=== PATIENT | female | born 1995 | race Caucasian/White ===

== ENCOUNTER 2018-01-25 10:44 | Outpatient (CLI) | payer BC ==
[~2018-01-25] VITALS: Ht 167.6 cm; Wt 74.5 kg
[~2018-01-25 10:44] MED LIST: MOTRIN 600600 MG/TAB PO; PERCOCET 325 MG1 TA2 PO; PRENATAL VITAMI1 TAB PO; SYNTHROID0.05 MG/TA PO
[2018-01-25 10:47] VITALS: BP 114/60; PULSE 73; TEMP 98.4
[2018-01-25 11:06] LABS: BASO % 0.4 % (0.0-2.0); EOS # 0.1 (0.0-0.7); EOS % 0.9 % (0-4.0); GRAN # 7.8 (1.4-6.5); HEMATOCRIT 33.9 % (37.0-47.0); HEMOGLOBIN 11.5 g/dl (12.5-16.0); LYMPH # 1.3 (1.2-3.4); LYMPH % 12.9 % (20.0-51.0); MEAN CELL VOLUME 86 fl (80.0-100.0); MEAN CORPUSCULAR HEMOGLOBIN 29 pg (27.0-31.0); MEAN CORPUSCULAR HGB CONC 34 g/dl (33.0-37.0); MEAN PLATELET VOLUME 9.7 fl (7.4-10.4); MONO # 0.4 (0.1-0.6); MONO % 4.3 % (1.7-9.3); PLATELET COUNT 209 K/mm3 (130-400); RED BLOOD COUNT 3.96 M/mm3 (4.10-5.30); REDCELL DISTRIBUTION WIDTH-CV 12.5 % (11.5-14.5)
[2018-01-25 11:15] LABS: ALBUMIN 3.4 gm/dL (3.5-5.0); BILIRUBIN,TOTAL 0.3 mg/dL (0.0-1.0); CALCIUM 9.6 mg/dL (8.4-10.2); CREATININE, serum 0.58 mg/dL (0.52-1.25); POTASSIUM 3.7 mmol/L (3.4-5.0); TOTAL PROTEIN 6.8 gm/dL (6.4-8.2)
== END 2018-01-25 12:15 | disposition home or self-care (01) ==
LOC: LDRO 10:44 → LDR 10:45 → LDRO 12:15
PROVIDERS: Obstetrics & Gynecology
DX: O46.93 Antepartum hemorrhage, unspecified, third trimester (principal); Z3A.32 32 weeks gestation of pregnancy
CPT/HCPCS: OP; J0702

== ENCOUNTER 2018-02-08 20:31 | Inpatient (IN) | payer BC ==
[~2018-02-08] VITALS: Ht 167.6 cm; Wt 75.9 kg
[2018-02-08] VITALS (13 sets, daily range): BP systolic 107–145; BP diastolic 57–79; PULSE 95–111; TEMP 98.5
[2018-02-08 21:37] LABS: BASO # 0.1 (0.0-0.2); BASO % 0.3 % (0.0-2.0); EOS # 0.1 (0.0-0.7); EOS % 0.5 % (0-4.0); GRAN # 12.2 (1.4-6.5); GRAN % 82.4 % (42.2-75.2); HEMOGLOBIN 11.3 g/dl (12.5-16.0); LYMPH # 1.6 (1.2-3.4); LYMPH % 10.9 % (20.0-51.0); MEAN CELL VOLUME 85 fl (80.0-100.0); MEAN CORPUSCULAR HEMOGLOBIN 29 pg (27.0-31.0); MEAN CORPUSCULAR HGB CONC 35 g/dl (33.0-37.0); MEAN PLATELET VOLUME 10.2 fl (7.4-10.4); MONO # 0.8 (0.1-0.6); MONO % 5.4 % (1.7-9.3); PLATELET COUNT 196 K/mm3 (130-400); RED BLOOD COUNT 3.88 M/mm3 (4.10-5.30); REDCELL DISTRIBUTION WIDTH-CV 12.8 % (11.5-14.5)
[2018-02-08 21:38] LABS: HEMATOCRIT 32.8 % (37.0-47.0)
[2018-02-09] VITALS (12 sets, daily range): BP systolic 109–168; BP diastolic 57–74; PULSE 77–114; TEMP 97.5–101.2
[2018-02-10 08:14] VITALS: BP 127/77; PULSE 85
[2018-02-10] MEDS ORDERED: PERCOCET 325 MG1 TA2 PO (09:32)
[2018-02-10] MEDS ORDERED: IBU800 M1 PO (09:32)
[2018-02-10] MEDS ORDERED: BREASTPUMP MC (09:33)
== END 2018-02-10 12:00 | disposition home or self-care (01) | DRG 775 ==
LOC: LDRO 20:31 → LDR 21:01 → OB 02-09 03:00
PROVIDERS: Obstetrics & Gynecology
PROC: 10E0XZZ Delivery of Products of Conception, External Approach (ICD-10-PCS; principal; 2018-02-08)
DX: O42.013 Preterm premature rupture of membranes, onset of labor within 24 hours of rupture, third trimester (principal); O99.284 Endocrine, nutritional and metabolic diseases complicating childbirth; E03.9 Hypothyroidism, unspecified; Z37.0 Single live birth; Z3A.34 34 weeks gestation of pregnancy
CPT/HCPCS: J0290; J1580; J2540; J2590; J2795; J7120